=== PATIENT | male | born 1940 | race Caucasian/White ===

== ENCOUNTER 2019-07-16 17:16 | Emergency (ER) | payer MEDICARE, OTHER ==
[~2019-07-16] VITALS: Ht 172.7 cm; Wt 94.5 kg
[2019-07-16 17:20] VITALS: BP 151/66
[2019-07-16] MEDS ORDERED: PRED20TA PO (17:26)
== END 2019-07-16 17:55 | disposition home or self-care (01) ==
LOC: ER 17:16
DX: J20.9 Acute bronchitis, unspecified (principal); J44.1 Chronic obstructive pulmonary disease with (acute) exacerbation; E78.00 Pure hypercholesterolemia, unspecified; I10 Essential (primary) hypertension; G89.29 Other chronic pain; F32.9 Major depressive disorder, single episode, unspecified; Z79.899 Other long term (current) drug therapy
CPT/HCPCS: 99283